=== PATIENT | male | born 1970 | race Hispanic/Latino ===

== ENCOUNTER 2025-03-12 10:56 | Emergency (ER) | payer SELFPAY ==
[2025-03-12 11:01] VITALS: BP 196/99
--- NOTE | 2025-03-12 12:17 | ED.GENMED ---
History of Present Illness
General
Chief Complaint: Fall
Source: patient
Exam Limitations: none
Time Seen by Provider: 03/12/25 11:34
Nursing documentation reviewed up to this point in time: agreed with
History of Present Illness
History of Present Illness:
The patient is a pleasant 54-year-old man who reports he was hanging decorations up outside his home and slipped off of a ladder. Patient estimates that he fell 5 to 6 feet down on the grass. Patient did not hit his head. Patient complains of
right lower back and abdominal pain. Patient denies chest pain or shortness of breath. He denies neck pain. Patient denies weakness and numbness of his legs. He is able to walk
Past History
Past History
ED Past Medical History: Other
ED Past Surgical History: Orthopedic
Social History
Tobacco: Other
Alcohol: Other
Drug: Other
Personal: Other
Living: with family
Employment: Other
Family History
Family History: Other
Review of Systems
Review of Systems
Allergies reviewed?: Yes
All Other Systems: ROS reviewed and negative except as documented in HPI and ROS
Constitutional: Reports no symptoms
EENT: Reports no symptoms
Respiratory: Reports no symptoms
Cardiac: Reports no symptoms
ABD/GI: Reports abdominal pain
: Reports no symptoms
Musculoskeletal: Reports muscle stiffness and back pain
Skin: Reports no symptoms
Neurological: Reports no symptoms
Endocrine: Reports no symptoms
Hematologic/Lymphatic: Reports no symptoms
Psychiatric: Reports no symptoms
Phy Exam
Physical Exam
Physical Exam:
Physical Exam
General: no apparent distress, not acutely ill. Atraumatic appearing face. Nontender scalp area
Neck: supple. Nontender
Heart: s1/s2 regular rate and rhythm, no murmur. equal radial pulses.
Lungs: no acute respiratory distress. clear bilaterally
Abdomen: Mild right sided abdominal tenderness and mild right flank tenderness. No rebound or guarding. Soft throughout and nondistended. No ecchymoses on chest abdomen or back. Mild lower lumbar/upper sacral tenderness
Neuro: alert and oriented. no focal neurological deficits. No saddle anesthesia. 5 out of 5 strength in all extremities. Extraocular muscles intact.
Skin: no rash
Psychiatric: well kept. interactive and cooperative
Extremities: nontender upper and lower extremities. Nontender pelvis and hips
Course
Orders/Labs/Results
Orders:
Orders
03/12/25 11:54
CT Abd/Pel (IV only)-DH only Urgent
Comment:
Reason For Exam: fall from ladder, sacral pain,R flank/R abdom pain
03/12/25 12:23
Acetaminophen [Tylenol] 1,000 mg PO NOW STA
Nursing to Place Non Medication Order As Directed (Cancelled)
Physician Order: please repeat BP
03/12/25 12:45
Complete Blood Count/With Diff Urgent
Comprehensive Metabolic Panel Urgent
03/12/25 12:46
Urinalysis Reflex To Culture Urgent
Date Specimen was Collected: 03/12/25
Time Specimen was Collected: 12:41
Urine Microscopic Reflex Cult Urgent
03/12/25 16:18
Oxycodone [Roxicodone] 5 mg PO NOW STA
Abnormal Lab Results
03/12/25 03/12/25
12:45 12:46
WBC 15.2 H 10^3/uL
(4.8-10.8)
Abs Immat Gran (auto) 0.1 H 10^3/uL
(0-0.05)
Absolute Neuts (auto) 13.5 H 10^3/uL
(1.4-6.5)
Absolute Lymphs (auto) 1.0 L 10^3/uL
(1.2-3.4)
Immature Gran % 0.8 H %
(0-0.5)
Neutrophils % 89.0 H %
(42.2-75.2)
Lymphocytes % 6.3 L %
(20.5-51.1)
Glucose 164 H mg/dl
(70-99)
Urine Bacteria (Reflex) Few A
(Negative)
Urine Glucose 3+ A
(Negative)
Urine Albumin (Reflex) 1+ A
(Neg - Trace)
03/12/25 12:45
03/12/25 12:45
Vital Signs
Initial and Last Documented VS:
Initial Vital Signs
Temp Pulse Resp BP Pulse Ox
97.7 F 82 18 196/99 98
03/12/25 11:01 03/12/25 11:01 03/12/25 11:01 03/12/25 11:01 03/12/25 11:01
Last Documented Vital Signs
Temp Pulse Resp BP Pulse Ox
97.7 F 74 18 165/104 98
03/12/25 11:01 03/12/25 12:44 03/12/25 12:44 03/12/25 15:57 03/12/25 12:44
MDM/Problems Addressed
Differential Diagnosis Includes:
Intra-abdominal hematoma, abdominal wall hematoma, sacral fracture
MDM/Problems Addressed:
Patient presents with acute right back pain and sacral pain after fall
Acute Exacerbation and/or Progression of Chronic Illness:
Patient is hypertensive, possibly due to pain but we will recheck his blood pressure
Acute Exacerbation and/or Progression of Chronic Illness: HTN
*Radiology
Radiology exam reviewed: radiology read reviewed
*Pulse Oximetry
SaO2: 98
Oxygen Mode of Delivery: Room air
Patient hypoxic: no
*EKG
Interpreted by ED Provider?: NA
*Glass Blowing Instructor Interpretation
Rate: Glass Blowing Instructor- N/A
*Critical Care Note
Total Time (30-74mins, 75-104mins- exclusive of procedures): Not Applicable
Data Reviewed
Source: patient
Patient Management
Social determinants of health affecting care: Living situation and Strong social support
Escalation/DeEscalation of care consider admission/obs:
Patient is able to get up and walk steadily. He remains extremely well-appearing. Patient instructed to follow-up with Dr. Reid in regards to his L1 fracture. Patient also given a copy of his blood work and told that his blood sugar was
slightly elevated and to follow-up with his primary care doctor soon as possible to have this rechecked.
ED Attending Note
-
Portions of this chart may have been created with voice recognition software.� Occasional wrong word or��sound alike� substitutions may have occurred due to the inherent limitations of voice recognition software.
Discharge Plan
Departure
Patient Disposition: Home (Routine Discharge)
Date of Disposition: 03/12/25
Time of Disposition: 16:16
Patient with high blood pressure during this ER visit?: Yes
Condition: Good
Covid-19: Not Applicable
Discharge Problem:
Closed compression fracture of L1 vertebra
Instructions: Vertebral compression fracture, BLOOD PRESSURE
Prescriptions:
New
oxycodone 5 mg tablet
5 mg PO QID PRN (Reason: Pain) Qty: 10 0RF
Referrals:
Romel Reid, DO [Non-Admitting Privileges, Orthopedics]
Referral Note: Call this Friday to schedule an appointment to see within 1 week
NONE,* [Family Provider, Internal Medicine]
Activity Restrictions/Additional Instructions:
Take 600 mg of Advil every 6-8 hours for pain. If pain becomes severe, you can also take 1 tablet of oxycodone every 6 hours as well for the pain
Interventions
Interventions:
*Risk Screen - Suicide Last Done: 03/12/25 11:01
*General Assessment Last Done: 03/12/25 11:01
*Neglect/Abuse Screening Last Done: 03/12/25 11:01
*ED- Fall Risk Assessment Last Done: 03/12/25 12:50
*ED COVID-19 Vaccine History Last Done: 03/12/25 11:01
*ED Influenza Vaccine History Last Done: 03/12/25 11:01
*Nursing Disposition Last Done: 03/12/25 16:21
ED-Musculoskeletal Assessment Last Done: 03/12/25 12:39
ED- Neurological Assessment Last Done: 03/12/25 12:39
ED-Skin Assessment Last Done: 03/12/25 12:40
Discharge Date and Time
Print Language: HEBREW
[2025-03-12] MEDS: TYLENOL 1000 MG PO (12:34)
[2025-03-12 12:35] VITALS: BMI 32.1
[2025-03-12 12:38] VITALS: BP 148/82
[2025-03-12 12:54] LABS: Urine Character Clear (Clear)
[2025-03-12 12:56] LABS: Hematocrit 40.1 % (39.0-52.0); Hemoglobin 13.8 g/dL (13.0-18.0); Mean Corp Hgb Conc. 34.4 g/dL (33.0-37.0); Mean Corpuscular Volume 85.3 fL (80.0-94.0); Nucleated Red Blood Cells % 0 % (-); Platelet Count 330 10^3/uL (130-400); Red Cell Dist. Width 12.9 % (11.5-14.5)
[2025-03-12 13:00] VITALS: BP 141/88
[2025-03-12 13:00] LABS: Urine Squamous Cell 0-2 /LPF (Few)
[2025-03-12 13:01] LABS: Urine Red Blood Cell 0-2 /HPF (0-2); Urine White Cell 0-2 /HPF (0-5)
[2025-03-12 13:07] LABS: ALT (SGPT) 28 U/L (0-50); AST (SGOT) 33 U/L (17-59); Albumin 4.5 g/dl (3.5-5.0); Alkaline Phosphatase 110 U/L (38-126); Blood Urea Nitrogen 19 mg/dl (9-20); Calcium 8.9 mg/dl (8.4-10.2); Carbon Dioxide 29 mmol/L (22-30); Chloride 103 mmol/L (98-107); Estimated Creatinine Clearance 96 ml/min; Glucose 164 mg/dl (70-99); Potassium 4.4 mmol/L (3.5-5.1); Sodium 137 mmol/L (135-145); Total Protein 7.7 g/dl (6.3-8.2); eGFR > 60.00
[2025-03-12 15:57] VITALS: BP 165/104
[2025-03-12] MEDS: ROXICODONE 5 MG PO (16:24)
== END 2025-03-12 16:35 | disposition home or self-care (01) ==
LOC: EMR 10:56
PROVIDERS: EMERGENCY PHYSICIAN Emergency Medicine
DX: M48.56XA Collapsed vertebra, not elsewhere classified, lumbar region, initial encounter for fracture (principal); R10.8A1 Right flank tenderness; W11.XXXA Fall on and from ladder, initial encounter; R73.9 Hyperglycemia, unspecified
CPT/HCPCS: 99284; 74177; 80053; 81003; 81015; 85025; Q9967